=== PATIENT | male | born 1935 | race Caucasian/White ===

== ENCOUNTER 2023-12-07 12:18 | Inpatient (IN) | payer MEDICAID, OTHER ==
[~2023-12-07] VITALS: Ht 154.9 cm; Wt 78.5 kg
[2023-12-07 12:56] LABS: BASOPHILS % (AUTO) 0.4 % (0.0-2.0); EOSINOPHILS % (AUTO) 0.1 % (0.0-6.0); HEMATOCRIT 34 % (39-51); HEMOGLOBIN 11.2 g/dL (13.5-17.5); LYMPHOCYTES # (AUTO) 1.8 K/uL (0.8-4.8); LYMPHOCYTES % (AUTO) 15.7 % (20.0-44.0); MEAN CORPUSCULAR HEMOGLOBIN 33 PG (26.0-33.0); MEAN CORPUSCULAR HGB CONC 33 g/dl (31.0-36.0); MEAN CORPUSCULAR VOLUME 100 fL (80-96); MONOCYTES # (AUTO) 0.6 K/uL (0.1-1.30); MONOCYTES % (AUTO) 5.4 % (2.0-12.0); NEUTROPHILS # (AUTO) 9.2 K/uL (1.8-8.9); NEUTROPHILS % (AUTO) 78.4 % (43.0-81.0); PLATELET COUNT (AUTO) 197 K/uL (150-450); RED BLOOD CELL COUNT(AUTO) 3.37 MIL/uL (4.5-6.0); RED CELL DISTRIBUTION WIDTH 15.1 % (11.5-15.0); WHITE BLOOD COUNT (AUTO) 11.7 K/uL (4.3-11.0)
[2023-12-07 13:21] LABS: ALANINE AMINOTRANSFERASE 49 U/L (12-78); ALBUMIN 3.3 g/dL (3.4-5.0); ALKALINE PHOSPHATASE 152 U/L (46-116); ASPARTATE AMINOTRANSFERASE 18 U/L (15-37); BILIRUBIN,DIRECT 0.2 mg/dL (0.0-0.2); BILIRUBIN,TOTAL 0.5 mg/dL (0.2-1.0); CALCIUM, SERUM 9.2 mg/dL (8.5-10.1); CARBON DIOXIDE 22 mmol/L (21-32); CHLORIDE 97 mmol/L (98-107); GLUCOSE 142 mg/dL (74-106); NT-PRO BNP 7097 pg/mL (0-125); SODIUM SERUM 130 mmol/L (136-145); TOTAL PROTEIN, SERUM 7.5 g/dL (6.4-8.2); UREA NITROGEN, BLOOD 74 mg/dL (7-18)
[2023-12-07 13:23] LABS: CREATININE 9.4 mg/dL (0.6-1.3); POTASSIUM 6.8 mmol/L (3.5-5.1)
[2023-12-07] MEDS ORDERED: SODIUM BICARBONATE SYR 50 MEQ/50 ML DISP.SYRIN ONE (13:43)
[2023-12-07] MEDS ORDERED: SODIUM POLYSTYRENE SULFONATE 15 G/60 ML BOTTLE ONE (13:43)
[2023-12-07] MEDS ORDERED: CALCIUM CHLORIDE 1,000 MG/10 ML DISP.SYRIN ONE (13:43)
[2023-12-07] MEDS ORDERED: INSULIN REGULAR, HUMAN 100 UNIT/ML 10 ML VIAL ONE (13:44)
[2023-12-07] MEDS ORDERED: DEXTROSE 50%-WATER 50 ML DISP.SYRIN ONE (13:44)
[2023-12-07] MEDS: DEXTROSE 50%-WATER 50 ML DISP.SYRIN IV ONE ×2 (13:59→14:00)
[2023-12-07] MEDS: CALCIUM CHLORIDE 1,000 MG/10 ML DISP.SYRIN IV ONE (13:59)
[2023-12-07] MEDS: SODIUM BICARBONATE SYR 50 MEQ/50 ML DISP.SYRIN IV ONE (14:00)
[2023-12-07] MEDS: SODIUM POLYSTYRENE SULFONATE 15 G/60 ML BOTTLE PO ONE (14:00)
[2023-12-07] MEDS: INSULIN REGULAR, HUMAN 100 UNIT/ML 10 ML VIAL IV ONE (14:01)
[2023-12-07] MEDS ORDERED: ASPIRIN 325 MG TABLET ONE (14:02)
[2023-12-07] MEDS: ASPIRIN 325 MG TABLET PO ONE (14:04)
[2023-12-07 14:18] VITALS: O2SAT 96
[2023-12-07] MEDS: ALBUTEROL FS 2.5 MG/3 ML VIAL.NEB NEB ONE (14:18)
[2023-12-07] MEDS ORDERED: ALBUTEROL FS 2.5 MG/3 ML VIAL.NEB ONE (14:20)
[2023-12-07 14:32] VITALS: O2SAT 100
[2023-12-07] MEDS ORDERED: MAG HYDROX/AL HYDROX/SIMETH 30 ML UDC PO PRN (17:30)
[2023-12-07] MEDS ORDERED: DEXTROSE 50%-WATER 50 ML DISP.SYRIN IV PRN (17:30)
[2023-12-07] MEDS ORDERED: ONDANSETRON HCL/PF 4 MG/2 ML VIAL IVP PRN (17:30)
[2023-12-07] MEDS ORDERED: MAGNESIUM HYDROXIDE 30 ML UDC PO PRN (17:30)
[2023-12-07] MEDS: INSULIN REGULAR, HUMAN 100 UNIT/ML 3 ML VIAL SQ PRN (18:19)
[2023-12-07] MEDS: BLOOD SUGAR DIAGNOSTIC 1 EACH STRIP IN SCH (18:19)
[2023-12-07 20:00] VITALS: BP 140/80; TEMP 98.9; O2SAT 97
[2023-12-07] MEDS ORDERED: SIMV20TA2 PO (20:27)
[2023-12-07] MEDS ORDERED: RIBO100T6 PO (20:27)
[2023-12-07] MEDS ORDERED: CINA30TA2 PO (20:27)
[2023-12-07] MEDS ORDERED: ALLO100T PO (20:27)
[2023-12-07] MEDS ORDERED: APIX2.5T PO (20:27)
[2023-12-07] MEDS ORDERED: HYDR-4303 PO (20:27)
[2023-12-07] MEDS ORDERED: ALTEPLASE CATHFLO 2 MG/VIAL ONE (23:25)
[2023-12-08] VITALS: BP 89/50; TEMP 98.8; O2SAT 98
[2023-12-08 04:00] VITALS: BP 92/50; TEMP 97.7; O2SAT 98
[2023-12-08 07:31] LABS: BASOPHILS % (AUTO) 0.5 % (0.0-2.0); EOSINOPHILS # (AUTO) 0.1 K/uL (0.0-0.7); EOSINOPHILS % (AUTO) 0.7 % (0.0-6.0); HEMATOCRIT 30 % (39-51); HEMOGLOBIN 10.1 g/dL (13.5-17.5); LYMPHOCYTES # (AUTO) 1.3 K/uL (0.8-4.8); LYMPHOCYTES % (AUTO) 13.1 % (20.0-44.0); MEAN CORPUSCULAR HEMOGLOBIN 34 PG (26.0-33.0); MEAN CORPUSCULAR HGB CONC 34 g/dl (31.0-36.0); MEAN CORPUSCULAR VOLUME 100 fL (80-96); MONOCYTES # (AUTO) 0.5 K/uL (0.1-1.30); MONOCYTES % (AUTO) 4.6 % (2.0-12.0); NEUTROPHILS # (AUTO) 8.2 K/uL (1.8-8.9); NEUTROPHILS % (AUTO) 81.1 % (43.0-81.0); PLATELET COUNT (AUTO) 149 K/uL (150-450); RED BLOOD CELL COUNT(AUTO) 2.94 MIL/uL (4.5-6.0); RED CELL DISTRIBUTION WIDTH 15.3 % (11.5-15.0); WHITE BLOOD COUNT (AUTO) 10.2 K/uL (4.3-11.0)
[2023-12-08 07:54] LABS: CALCIUM, SERUM 9.1 mg/dL (8.5-10.1); CARBON DIOXIDE 23 mmol/L (21-32); CHLORIDE 97 mmol/L (98-107); GLUCOSE 103 mg/dL (74-106); MAGNESIUM 2.5 mg/dL (1.8-2.4); POTASSIUM 5.2 mmol/L (3.5-5.1); SODIUM SERUM 131 mmol/L (136-145); UREA NITROGEN, BLOOD 63 mg/dL (7-18)
[2023-12-08 07:58] LABS: CREATININE 8.6 mg/dL (0.6-1.3)
[2023-12-08 08:00] VITALS: BP 97/49; TEMP 97.6; O2SAT 98
[2023-12-08] MEDS ORDERED: HYDROCODONE/APAP 5/325MG TABLET PO PRN (10:00)
[2023-12-08] MEDS: ALLOPURINOL 100 MG TABLET PO SCH (10:36)
[2023-12-08] MEDS: APIXABAN 2.5 MG TABLET PO SCH (10:38)
[2023-12-08] MEDS: ALTEPLASE CATHFLO 2 MG/VIAL XX ONE (10:58)
[2023-12-08] MEDS: CINACALCET HCL 30 MG TABLET PO SCH (11:20)
[2023-12-08 12:00] VITALS: BP 130/55; TEMP 98.8; O2SAT 98
[2023-12-08 16:00] VITALS: BP 126/68; TEMP 98.4; O2SAT 98
[2023-12-08 20:00] VITALS: BP 116/57; TEMP 97.9; O2SAT 100
[2023-12-08] MEDS: SIMVASTATIN 20 MG TABLET PO SCH (22:14)
[2023-12-09] VITALS: BP 113/64; TEMP 97.9; O2SAT 100
[2023-12-09 04:00] VITALS: BP 120/60; TEMP 98; O2SAT 100
[2023-12-09 08:00] VITALS: BP 120/56; TEMP 98; O2SAT 91
[2023-12-09] MEDS ORDERED: RIBOFLAVIN 100 MG PO SCH (09:00)
[2023-12-09 12:00] VITALS: BP 120/56; TEMP 98; O2SAT 94
[2023-12-09 12:08] LABS: HEPATITIS B SURFACE AB Reactive (.)
[2023-12-09] MEDS: ACETAMINOPHEN 325 MG TABLET PO PRN (13:05)
[2023-12-09 16:00] VITALS: BP 112/59; TEMP 98.8; O2SAT 99
[2023-12-09 20:00] VITALS: BP 109/57; TEMP 98.2; O2SAT 96
== END 2023-12-09 21:00 | disposition short-term general hospital (02) | DRG 280 ==
LOC: ER 12:20 → TELE1 15:45 → MEDSG1 12-09 14:59
PROVIDERS: ADMIT Nurse Practitioner Acute Care; ATTEND Nurse Practitioner Acute Care
PROC: 5A1D70Z Performance of Urinary Filtration, Intermittent, Less than 6 Hours Per Day (ICD-10-PCS; 2023-12-07)
PROC: 06HM33Z Insertion of Infusion Device into Right Femoral Vein, Percutaneous Approach (ICD-10-PCS; principal; 2023-12-09)
PROC: B54BZZA Ultrasonography of Right Lower Extremity Veins, Guidance (ICD-10-PCS; 2023-12-09)
DX: I21.4 Non-ST elevation (NSTEMI) myocardial infarction (principal); N18.6 End stage renal disease; I13.2 Hypertensive heart and chronic kidney disease with heart failure and with stage 5 chronic kidney disease, or end stage renal disease; E44.1 Mild protein-calorie malnutrition; D68.69 Other thrombophilia; C85.10 Unspecified B-cell lymphoma, unspecified site; R55 Syncope and collapse; I50.9 Heart failure, unspecified; D63.1 Anemia in chronic kidney disease; D72.829 Elevated white blood cell count, unspecified; E11.22 Type 2 diabetes mellitus with diabetic chronic kidney disease; E66.9 Obesity, unspecified; E78.5 Hyperlipidemia, unspecified; E87.5 Hyperkalemia; E88.09 Other disorders of plasma-protein metabolism, not elsewhere classified; I48.91 Unspecified atrial fibrillation; Z79.01 Long term (current) use of anticoagulants; Z99.2 Dependence on renal dialysis; Z20.822 Contact with and (suspected) exposure to COVID-19; Z68.32 Body mass index [BMI] 32.0-32.9, adult; N25.0 Renal osteodystrophy; W19.XXXA Unspecified fall, initial encounter; Y93.9 Activity, unspecified; Y92.89 Other specified places as the place of occurrence of the external cause
CPT/HCPCS: 36415; 70450-TC; 71045-TC; 73564-TC; 80048-TC; 80076-TC; 82962-TC; 83735-TC; 83880; 84100-TC; 84484-TC; 85025-TC; 86706; 87340; 90935-TC; 93307-TC; 97110-TC; 97116-TC; 97530-TC; G0378; J1815; J2997; J3490